=== PATIENT | male | born 1955 | race Caucasian/White ===

== ENCOUNTER → 2017-05-20 | Outpatient (CLI) | payer BC ==
[~2017-05-20] MED LIST: ACC10 PO; ASC400 PO; GABA-113 PO; PRLSR20 PO; TRAM-10 PO
[2017-05-20 12:18] LABS: BASO % 0.3 %; BASO ABS # 0.02 K/uL (0-0.2); COMPLETE YES; EOS % 1.7 %; HEMATOCRIT 44.1 % (42-52); IG% 0.4 %; LYMPH % 23.7 %; LYMPH ABS # 1.78 K/uL (1.2-3.4); MEAN CELL VOLUME 86.1 fL (80-100); MEAN CORPUSCULAR HEMOGLOBIN 29.7 pg (25-34); MEAN CORPUSCULAR HGB CONC 34.5 g/dl (32-36); MEAN PLATELET VOLUME 11.8 fL (7.4-10.4); MONO % 6.8 %; NEUT % 67.1 %; PLATELET COUNT 171 K/uL (130-400); RED BLOOD COUNT 5.12 M/uL (4.7-6.1); WHITE BLOOD COUNT 7.52 K/uL (4.8-10.8)
[2017-05-20 12:29] LABS: ALT/SGPT 31 U/L (12-78); AST/SGOT 21 U/L (15-37); BLOOD UREA NITROGEN 15 mg/dl (7-18); CALCIUM 8.6 mg/dl (8.5-10.1); CARBON DIOXIDE 27 mmol/L (21-32); CHLORIDE 104 mmol/L (98-107); CREATININE 0.93 mg/dl (0.60-1.40); GLUCOSE 93 mg/dl (70-99); SODIUM 137 mmol/L (136-145)
[2017-05-20 12:34] LABS: ALB/GLOB RATIO 0.9 (0.9-2); ALKALINE PHOSPHATASE 83 U/L (45-117); CHOLESTEROL 115 mg/dl (0-200); CHOLESTEROL/HDL RATIO 3.7; HDL CHOLESTEROL 31 mg/dl; LDL CHOLESTEROL CALCULATED 63 mg/dl; PROSTATE SPECIFIC ANTIGEN 0.741 ng/ml (0.000-4.000); TRIGLYCERIDES 106 mg/dl (0-150); VERY LOW DENSITY LIPOPROT CALC 21 mg/dl
== END | disposition home or self-care (01) ==
LOC: C.LABBFT 09:17
PROVIDERS: ATTEND Nurse Practitioner
DX: E78.00 Pure hypercholesterolemia, unspecified (principal); Z12.5 Encounter for screening for malignant neoplasm of prostate; K51.90 Ulcerative colitis, unspecified, without complications

== ENCOUNTER 2024-07-28 10:09 | Inpatient (IN) ==
--- NOTE | 2024-07-28 10:28 | Emergency Department Note ---
Impression & Plan Diverticulitis, Diarrhea, Pneumonia, Acute hypokalemia, Weakness ED Provider Note NAME: SIVAN LOTT Jr AGE: 68 SEX: M : 1955 ARRIVES VIA: Walk-In INFORMANT: Patient ED PROVIDER(S): Benigno Macedo DO CHIEF COMPLAINT: Nausea and diarrhea HPI: Patient is a 68-year-old male with a past medical history of Crohn's for the past 20 years. He notes he has been having bad diarrhea for the past 2 years. It did worsen about a week and a half ago. He denies any headache or change in vision. No chest pain or shortness of breath. No belly pain. He notes he cannot really eat or drink much as when he does he has immediate diarrhea. Denies any dysuria, urgency, or frequency. No other exacerbating or remitting factors. No fevers. ADDITIONAL HISTORY OBTAINED: Significant other at bedside notes that his urine has been very concentrated and they are concerned for dehydration. Chronic Medical/Social Conditions Affecting Care: Per HPI PAST MEDICAL HISTORY:See Below PAST SURGICAL HISTORY:See Below FAMILY HISTORY:See Below SOCIAL HISTORY:See Below HOME MEDICATIONS:See Below ALLERGIES:See Below VITALS:See Below PHYSICAL EXAMINATION: GENERAL: Sitting up in bed, alert, well appearing, well nourished, no distress, non-toxic EYE EXAM: normal conjunctiva. PERRL and EOM's grossly intact. OROPHARYNX: no exudate, no erythema, lips, buccal mucosa, and tongue normal and mucous membranes are moist NECK: supple, no nuchal rigidity, no adenopathy, non-tender LUNGS: Clear to auscultation. Normal chest wall mechanics HEART: no murmurs, S1 normal and S2 normal ABDOMEN: abdomen soft, non-tender, normo-active bowel sounds, no masses, no rebound or guarding. UPPER EXTREMITIES: upper extremities are grossly normal. LOWER EXTREMITIES: No pitting edema. NEURO EXAM: Normal sensorium, cranial nerves II-XII grossly intact, normal speech, no gross weakness of arms, no gross weakness of legs. MEDICAL DECISION MAKING: Patient is a 68-year-old male who presents ER for the below stated complaint. IV was established and blood work was obtained. Labs show leukocytosis of 11.7 thousand. No significant anemia. BMP with mild hypokalemia at 2.7. LFTs and bilirubin were unremarkable. Lipase was normal. UA was clean. CT abdomen pelvis shows diverticulitis and a questionable pneumonia. X-ray shows a right lower lobe infiltrate. CT abdomen pelvis confirms this. Patient was given IV Levaquin and Flagyl as well as IV fluids. He was also given IV potassium. Patient was updated bedside and discussed with the hospitalist for further evaluation management treatment. Consults/Care Managements Discussions: Per MDM Triage Nursing notes reviewed. Limited review of prior medical records performed Vital Signs: reviewed and remarkable for no significant abnormalities Differential diagnosis: Differential diagnoses includes but is not limited to gastritis, peptic ulcer disease, GERD, gallbladder disease, pancreatitis, small bowel obstruction, appendicitis, diverticulitis, hernia, urinary tract infection, torsion, perforation, trauma, infectious. ER treatment provided: See below Diagnostics interpreted by me include EKG and cardiac monitoring as listed below: -Cardiac Monitoring: An order was placed for continuous cardiac monitoring. The monitor shows a rate of 80 with sinus rhythm. -ECG: none -Laboratory studies:Interpreted by me as stated above in MDM and shown below. Imaging studies: Xrays: As interpreted by me: Portable AP upright 1 view of the chest shows right lower lobe infiltrate CTs show: CT abdomen pelvis as described above Procedures:none Critical Care: None Past Med/Surg History Problem List (Updated 07/28/24 @ 16:05 by Benigno Macedo DO) Weakness (Acute) Acute hypokalemia (Acute) Pneumonia (Acute) Diarrhea (Acute) Diverticulitis (Acute) Hypokalemia Pneumonia Acute diverticulitis Nausea and vomiting Diarrhea Screening due Acute diarrhea Crohn disease Vitamin B12 deficiency Chronic diarrhea Fecal incontinence Fatigue Abdominal bloating Hypercholesteremia (Chronic) Hypertension (Chronic) Ulcerative colitis (Chronic) Seasonal allergies (Acute) Peyronie's disease (Acute) Lumbar spinal stenosis (Acute) Gastroesophageal reflux disease (Chronic) Erectile dysfunction (Acute) Smoker Screening for malignant neoplasm of prostate Tobacco dependence (Chronic) Disappearance and of family member (Chronic) Muscle cramps at night Neuropathy Personal history of other malignant neoplasm of skin Medical History (Updated 07/28/24 @ 16:05 by Benigno Macedo DO) Rib pain on left side Skin lesion of right upper extremity Skin lesion of scalp Cervical post-laminectomy syndrome Cervicalgia Vitamin D deficiency Surgical History History of colonoscopy Family History Father Stroke Hx of CABG Mother Stroke Denies family history of Prostate cancer Breast cancer Colorectal cancer Social History Smoking Status: Current every day smoker Tobacco Type: Cigarettes Age Started Using Tobacco: 6; packs per day: 1.5; Cigarettes Per Day: 2; Second Hand Exposure: Yes; Do You Dip or Chew Tobacco: No; Hx Alcohol Use: No Hx Substance Use: No Preferred Language: Japanese Communication Ability: Effective Visual Impairment: No Limitations Hearing Ability: Normal Karate Instructor Required: No Beliefs That Will Affect Care: None marital status: Current Living Situation: Spouse current occupational status: retired Other Information That Helps Us Care for You: No Feels Safe at Home: Yes Safety Concerns: Feels Safe At This Time Childhood Exposure to Second-Hand Smoke: Yes Diet: regular caffeine: Yes Seatbelt Use: always Assistive Devices: Glasses Assistive Devices Comment: glasses are not with pt. Allergies Allergies Allergy/AdvReac Type Severity Reaction Status Date / Time Penicillins Allergy Severe swelling Verified 07/28/24 08:15 in throat codeine Allergy Unknown Verified 07/28/24 08:15 morphine Allergy Unknown Verified 07/28/24 08:15 B 12 pills Allergy Severe Vomiting Uncoded 07/28/24 08:15 Home Meds Home Medications Medication Instructions Recorded Confirmed cholecalciferol (vitamin D3) 25 1,000 units PO UD 01/03/19 07/28/24 mcg (1,000 unit) capsule mesalamine 400 mg capsule (with 400 mg PO QID #360 ea 01/03/19 07/28/24 delayed release tablets inside) omeprazole 20 mg tablet,delayed 20 mg PO UD #90 tabs 01/03/19 07/28/24 release vitamin E 200 unit capsule 200 units PO DAILY 01/05/19 07/28/24 gabapentin 300 mg capsule 300 mg PO UD PRN Other #90 caps 05/29/24 07/28/24 cyanocobalamin (vitamin B-12) 1,000 mcg IM DIRECTED 07/28/24 07/28/24 1,000 mcg/mL injection solution Previous Rx's Medication Instructions Recorded simethicone 125 mg capsule 125 mg PO DAILY PRN abdominal 08/20/23 distention #90 caps olmesartan 20 1 tab PO DAILY #90 tabs 12/15/23 mg-hydrochlorothiazide 12.5 mg tablet simvastatin 40 mg tablet 40 mg PO HS #90 tabs 12/15/23 albuterol sulfate 90 mcg/actuation 2 inh inhalation Q6H PRN shortness 07/11/24 breath activated powder inhaler of breath or wheezing #1 ea (ProAir RespiClick) Results & Data (ED) Vital Signs Vital Signs - 24 hr 07/28/24 10:11 07/28/24 11:52 07/28/24 12:52 Temperature 37.1 C Temperature Source Temporal Artery Scan Pulse Rate 88 Pulse Rate [Finger] 72 74 Respiratory Rate 14 16 16 Respiratory Effort / Characteristics Non-Labored Spontaneous Non-Labored Spontaneous Respiratory Depth Normal Normal Respiratory Pattern Regular Regular Blood Pressure 108/69 Blood Pressure [Right Arm] 106/69 149/75 H Blood Pressure Mean 82 Blood Pressure Mean [Right Arm] 81 99 Blood Pressure Position [Right Arm] Semi-fowlers Pulse Oximetry 94 95 95 Oxygen Delivery Method Room Air Room Air Room Air Sepsis New/Unexplained Change in Mental Status No Sepsis Action Taken by Nursing No Action Required Laboratory Data 07/28/24 10:30 07/28/24 10:30 Lab Results 07/28/24 07/28/24 Range/Units 10:30 11:52 WBC 11.76 H (4.8-10.8) K/ul RBC 4.37 L (4.70-6.10) M/uL Hgb 12.2 L (14.0-18.0) g/dl Hct 36.0 L (42.0-52.0) % MCV 82.4 (80.0-100.0) fL MCH 27.9 (25.0-34.0) pg MCHC 33.9 (32.0-36.0) g/dL RDW Std Deviation 38.9 (36.4-46.3) fL RDW Coeff of Rell 12.9 (11.5-14.5) % Plt Count 424 H (130-400) K/uL MPV 9.6 (9.4-12.4) fL Immature Gran % (Auto) 2.5 % Neut % (Auto) 78.1 % Lymph % (Auto) 12.2 % [place] % (Auto) 5.8 % Eos % (Auto) 0.9 % Baso % (Auto) 0.5 % Neut # (Auto) 9.20 H (1.40-6.50) K/uL Lymph # (Auto) 1.43 (1.20-3.40) K/uL [place] # (Auto) 0.68 H (0.11-0.59) K/uL Eos # (Auto) 0.10 (0.00-0.50) K/uL Baso # (Auto) 0.06 (0.00-0.20) K/uL Immature Gran # (Auto) 0.29 H (0.01-0.20) K/uL Sodium 134 L (136-145) mmol/L Potassium 2.7 L (3.5-5.1) mmol/L Chloride 95 L (98-107) mmol/L Carbon Dioxide 29 (21-32) mmol/L Anion Gap 10 (3-11) BUN 14 (6-23) mg/dl Creatinine 1.01 (0.6-1.4) mg/dl Est Cr Clr Drug Dosing 75.4 ml/min eGFR 81.01 BUN/Creatinine Ratio 13.9 (10-20) Glucose 100 H (70-99(Fasting)) mg/dl Calcium 9.0 (8.6-10.3) mg/dl Magnesium 2.0 (1.7-2.4) mg/dl Iron 29 L (35-175) mcg/dl Ferritin 277.4 (8-388) ng/ml Total Bilirubin 0.6 (0.2-1.0) mg/dl AST 16 (13-39) U/L ALT 18 (7-52) U/L Alkaline Phosphatase 68 (34-104) U/L Total Protein 7.5 (6.0-8.3) gm/dl Albumin 3.3 L (3.4-5.0) gm/dl Globulin 4.2 H (2.5-4.0) gm/dl Albumin/Globulin Ratio 0.8 L (0.9-2) Lipase 11 (11-82) U/L Urine Color Yellow Urine Appearance Clear (Clear) Urine pH 6.0 (4.5-7.5) Ur Specific [place] 1.018 (1.000-1.030) Urine Protein Negative (Negative) Urine Glucose (UA) Negative (Negative) Urine Ketones Negative (Negative) Urine Blood Negative (Negative) Urine Nitrite Negative (Negative) Urine Bilirubin Negative (Negative) Urine Urobilinogen Negative (Negative) Ur Leukocyte Esterase 1+ H (Negative) Urine WBC (Auto) 0-5 (0-5) /hpf Urine RBC (Auto) 0-2 (0-2) /hpf U Hyaline Cast (Auto) 0-2 (0-2) /lpf U Epithel Cells (Auto) 0-2 (0-2) /hpf Urine Bacteria (Auto) None Seen (None Seen) Administered Medications Sodium Chloride (Nss) 1,000 mls @ 125 mls/hr IV .Q8H CAITLYN Stop: 07/29/24 13:29 Last Admin: 07/28/24 13:48 Dose: 125 mls/hr Documented By: CLYDE Potassium Chloride ([place] / Wtr) 10 meq in 100 mls @ 100 mls/hr IV Q1H CAITLYN Stop: 07/28/24 17:29 Last Admin: 07/28/24 15:52 Dose: 100 mls/hr Documented By: CADE Discontinued Medications Sodium Chloride (Nss) 1,000 mls @ 999 mls/hr IV .Q1H1M ONE Stop: 07/28/24 11:24 Last Infusion: 07/28/24 11:52 Dose: Infused Documented By: Admin: 07/28/24 10:35 Dose: 999 mls/hr Documented By: DAVID Metronidazole (Flagyl) 500 mg in 100 mls @ 100 mls/hr IV NOW STA; Protocol Stop: 07/28/24 13:07 Last Infusion: 07/28/24 13:56 Dose: Infused Documented By: Admin: 07/28/24 12:48 Dose: 100 mls/hr Documented By: CLYDE Potassium Chloride ([place] / Wtr) 10 meq in 100 mls @ 100 mls/hr IV Q1H CAITLNY Stop: 07/28/24 14:14 Last Infusion: 07/28/24 15:57 Dose: Infused Documented By: Admin: 07/28/24 13:51 Dose: 100 mls/hr Documented By: Infusion: 07/28/24 13:50 Dose: Infused Documented By: Admin: 07/28/24 12:50 Dose: 100 mls/hr Documented By: CLYDE Ioversol (Optiray 320 100ml) 94 ml IV ONCE ONE Stop: 07/28/24 11:19 Last Admin: 07/28/24 11:18 Dose: 94 ml Documented By: BR Imaging Data Radiologist's Impression: Abdomen/Pelvis CT 07/28/24 10:[address] WITH IV CONTRAST CT DOSE: 1159.5 mGy.cm HISTORY: Acute weakness with diarrhea weak TECHNIQUE: Multiaxial CT images of the abdomen and pelvis were performed following the IV administration of 94 cc of Optiray, A dose lowering technique was utilized adhering to the principles of ALARA. COMPARISON STUDY: None. FINDINGS: Coronary artery calcifications. Pulmonary emphysema with bronchial wall thickening, mucus plugging in left greater than right bibasilar consolidation which is most pronounced in the basal left lower lobe. There are associated tree-in-bud nodules. No pneumatosis or pneumoperitoneum. Unremarkable spleen, pancreas and adrenal glands. Contracted gallbladder. Unremarkable liver with patency of the hepatic and portal veins. Exophytic cyst of the superior pole left kidney. Mild dilation of the superior pole collecting system of the right kidney with mild urothelial thickening. No ureteral calculi. Bladder wall thickening with partial distention. Prostatomegaly. Atherosclerosis of the aorta and branch vessels with high-grade stenosis within the proximal superior mesenteric artery. There is no lymphadenopathy identified. Mildly prominent periesophageal lymph nodes are subcentimeter in size. Colonic diverticulosis. Numerous fluid-filled loops of small bowel are noted without obstruction. Small bowel diverticula are also noted with mild inflammation surrounding the ileal diverticulum of the midline lower abdomen on image 17 series 3. Tiny fat filled periumbilical hernia. No acute fracture. Indeterminate 1.6 cm nodular focus within the right retroperitoneum adjacent to the inferior right hepatic lobe on image 142 series 3. IMPRESSION: 1. Bibasilar pneumonia. 2. Large and small bowel diverticulosis with mild acute diverticulitis involving the ileum. 3. Prostamegaly with evidence of chronic outlet obstruction. 4. Mild pelviectasis of the superior pole right kidney with mild urothelial thickening. Correlate with urinalysis. 5. 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 6. Small bowel air-fluid levels may represent an ileus versus enteritis. No bowel obstruction. 7. Incidental findings as above. ACT 112: Negative or not required by law. The above report was generated using voice recognition software. It may contain grammatical, syntax or spelling errors. Electronically signed by: Eliseo Caceres M.D. 07/28/2024 11:46 AM Chest X-Ray 07/28/24 12:10 XR chest 1V portable CLINICAL HISTORY: pna? COMPARISON STUDY: 09/28/2011 FINDINGS: Heart size and pulmonary vasculature are normal. There is interval reticular and patchy [place]acity in the lung bases. No pleural effusion or pneumothorax. IMPRESSION: Bilateral lung base pneumonia. ACT 112: Negative or not required by law. Electronically signed by: John Peña M.D. 07/28/2024 12:38 PM Discharge Plan Visit Data Chief Complaint: Dehydration Stated Complaint: DEHYDRATION ED Provider: Benigno Macedo Discharge Problem: Diverticulitis, Diarrhea, Pneumonia, Acute hypokalemia, Weakness Patient Disposition: Admitted As Inpatient Discharge Instructions Interventions: ED Discharge Assessment Last Done: 07/28/24 14:30 Discharge Problem: Diarrhea Qualifiers: Diarrhea type: unspecified type Qualified Code(s): R19.7 - Diarrhea, unspecified Pneumonia Qualifiers: Pneumonia type: due to unspecified organism Laterality: unspecified laterality Lung location: unspecified part of lung Qualified Code(s): J18.9 - Pneumonia, unspecified organism
[2024-07-28] MEDS: SODIUM CHLORIDE 0.9% 1,000 ML IV ONE (10:35)
[2024-07-28 10:54] LABS: Basophils # (auto) 0.06 K/uL (0.00-0.20); Basophils % (auto) 0.5 %; Eosinophils % (auto) 0.9 %; Hemoglobin 12.2 g/dl (14.0-18.0); Immature Granulocytes # (auto) 0.29 K/uL (0.01-0.20); Immature Granulocytes % (auto) 2.5 %; Lymphocytes # (auto) 1.43 K/uL (1.20-3.40); Lymphocytes % (auto) 12.2 %; Mean Corpuscular Hemoglobin 27.9 pg (25.0-34.0); Mean Corpuscular Hgb Conc 33.9 g/dL (32.0-36.0); Mean Corpuscular Volume 82.4 fL (80.0-100.0); Mean Platelet Volume 9.6 fL (9.4-12.4); Monocytes # (auto) 0.68 K/uL (0.11-0.59); Monocytes % (auto) 5.8 %; Neutrophils % (auto) 78.1 %; Platelet Count 424 K/uL (130-400); RDW Coefficient of Variation 12.9 % (11.5-14.5); RDW Standard Deviation 38.9 fL (36.4-46.3); Red Blood Count 4.37 M/uL (4.70-6.10); White Blood Count 11.76 K/ul (4.8-10.8)
[2024-07-28 11:09] LABS: Albumin Globulin Ratio 0.8 (0.9-2); Albumin Level 3.3 gm/dl (3.4-5.0); BUN Creatinine Ratio 13.9 (10-20); Bilirubin,Total 0.6 mg/dl (0.2-1.0); Creatinine Clr Calc Pharmacy 75.4 ml/min; Globulin 4.2 gm/dl (2.5-4.0); Potassium 2.7 mmol/L (3.5-5.1); Total Protein 7.5 gm/dl (6.0-8.3)
[2024-07-28] MEDS: OPTIRAY 320 100ml IV ONE (11:18)
--- NOTE | 2024-07-28 11:47 | CT Scan Report ---
ABDOMEN AND PELVIS CT WITH IV CONTRAST CT DOSE: 1159.5 mGy.cm HISTORY: Acute weakness with diarrhea weak TECHNIQUE: Multiaxial CT images of the abdomen and pelvis were performed following the IV administrat ion of 94 cc of Optiray, A dose lowering technique was utilized adhering to the principles of ALARA. COMPARISON STUDY: None. FINDINGS: Coronary artery calcifications. Pulmonary emphysema with bronchial wall thickening, mucus p lugging in left greater than right bibasilar consolidation which is most pronounced in the basal left lower lobe. There are associated tree-in-bud nodules. No pneumatosis or pneumoperitoneum. Unremarkable spleen, pancreas and adrenal glands. Contracted gallbladder. Unremarkable liver with pat ency of the hepatic and portal veins. Exophytic cyst of the superior pole left kidney. Mild dilation of the superior pole collecting system of the right kidney with mild urothelial thickening. No ureter al calculi. Bladder wall thickening with partial distention. Prostatomegaly. Atherosclerosis of the a branden and branch vessels with high-grade stenosis within the proximal superior mesenteric artery. Ther e is no lymphadenopathy identified. Mildly prominent periesophageal lymph nodes are subcentimeter in size. Colonic diverticulosis. [place] us fluid-filled loops of small bowel are noted without obstruction. Small bowel diverticula are also noted with mild inflammation surrounding the ileal diverticulum of the midline lower abdomen on image 17 series 3. Tiny fat filled periumbilical hernia. No acute fracture. Indeterminate 1.6 cm nodular f ocus within the right retroperitoneum adjacent to the inferior right hepatic lobe on image 142 series 3. IMPRESSION: 1. Bibasilar pneumonia. 2. Large and small bowel diverticulosis with mild acute diverticulitis involving the ileum. 3. Prostamegaly with evidence of chronic outlet obstruction. 4. Mild pelviectasis of the superior pole right kidney with mild urothelial thickening. Correlate wit h urinalysis. 5. 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 6. Small bowel air-fluid levels may represent an ileus versus enteritis. No bowel obstruction. 7. Incidental findings as above. ACT 112: Negative or not required by law. The above report was generated using voice recognition software. It may contain grammatical, syntax o r spelling errors. Electronically signed by: Eliseo Caceres M.D. 07/28/2024 11:46 AM
[2024-07-28 12:07] LABS: Appearance Urine Clear (Clear); Bacteria Urine Automated None Seen (None Seen); Bilirubin Urine Negative (Negative); Blood Urine Negative (Negative); Cast Urine Automated 0-2 /lpf (0-2); Color Urine Yellow; Epithelial Cell Urine Auto 0-2 /hpf (0-2); Glucose Urine UA Negative (Negative); Ketones Urine Negative (Negative); Leukocyte Esterase Urine 1+ (Negative); Nitrite Urine Negative (Negative); Protein Urine Negative (Negative); RBC Urine Automated 0-2 /hpf (0-2); Specific Gravity Urine 1.018 (1.000-1.030); Urobilinogen Urine Negative (Negative); WBC Urine Automated 0-5 /hpf (0-5)
--- NOTE | 2024-07-28 12:28 | History & Physical Report ---
Date of Service July 28, 2024 Assessment & Plan (1) Acute diverticulitis: (2) Pneumonia: (3) Hypokalemia: Plan Juan Pablo is a 68-year-old male with PMH of Crohn's disease, ulcerative colitis, GERD, and neuropathy. He presented on 07/28 for diarrhea x 2 weeks. Patient reports that he had the flu 2.5 weeks ago, and shortly after his Crohn's started to flare and act up. He then developed continuous diarrhea. Patient has also had concomitant fevers, chills, and occasional chest palpitations since then. He then began to develop dyspnea on exertion productive cough, with 1 episode of hemoptysis. #Acute diverticulitis A/P CT revealed mild acute diverticulitis involving the ileum; no SBO; no mention of abscess/perforation NSS 1000 mL IV x 1 in the ED Continue fluid resuscitation with NSS at 125 mL/hour x 3 L Hold HCTZ IV pain control as needed IV antiemetics as needed Metronidazole 500 mg IV q8h Will defer ceftriaxone given listed PCN allergy with "swelling in throat" Levofloxacin 750 mg IV q24h N.p.o./bowel rest for now (except p.o. 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 BMP #Anemia Hgb 12.2 on arrival Clinically, patient denies melena, or bright red blood in the urine or stool 1 episode of hemoptysis on the evening of 07/27 Fe panel, ferritin, B12, and folate ordered, pending Trend CBCs #Tobacco use Patient reports that he smokes 2 packs/day Patient declines nicotine patch on admission Continue to encourage cessation Disposition: Admit to PCU telemetry Full code N.p.o./bowel rest for now VTE PPx: SCDs History of Present Illness Chief Complaint: Diarrhea Primary Care Provider: Miles Watson DO Juan Pablo is a 68-year-old male with PMH of Crohn's disease, ulcerative colitis, GERD, and neuropathy. He presented on 07/28 for diarrhea x 2 weeks. Patient reports that he had the flu 2.5 weeks ago, and shortly after his Crohn's started to flare and act up. He then developed continuous diarrhea. Patient has also had concomitant fevers, chills, and occasional chest palpitations since then. He then began to develop dyspnea on exertion productive cough, with 1 episode of hemoptysis. No SOB at rest. No submental oxygen baseline or CPAP at night. He has been taking ibuprofen and Tylenol for his symptoms. He also used Vicks last night. He took his regular morning medicine today; no recent change in medications. Patient denies any pain when eating; no pain radiating over the past month or year. Patient is a current everyday tobacco cigarette smoker; 2 packs/day. He denies any recent alcohol use. PCN allergy of throat swelling. Patient's vitals are stable at time admission. ED course: Levaquin 750 mg IV Metronidazole 500 mg IV K rider 10 mEq IV x 2 NSS 1000 mL IV ROS: Patient endorses fever, chills, night-sweats, chest palpitations (intermittently), productive cough (green), 1 episode of hemoptysis, dysuria, burning with urination, dark urine, and ongoing diarrhea. Patient denies body aches, chest pain, pleuritic CP, SOB at rest, abdominal pain, N/V, blood in urine/stool, or melena. Allergies Allergy/AdvReac Type Severity Reaction Status Date / Time Penicillins Allergy Severe swelling Verified 07/28/24 08:15 in throat codeine Allergy Unknown Verified 07/28/24 08:15 morphine Allergy Unknown Verified 07/28/24 08:15 B 12 pills Allergy Severe Vomiting Uncoded 07/28/24 08:15 Home Medications Medication Instructions Recorded Confirmed Type cholecalciferol (vitamin D3) 25 1,000 units PO UD 01/03/19 07/28/24 History mcg (1,000 unit) capsule mesalamine 400 mg capsule (with 400 mg PO QID #360 ea 01/03/19 07/28/24 History delayed release tablets inside) omeprazole 20 mg tablet,delayed 20 mg PO UD #90 tabs 01/03/19 07/28/24 History release vitamin E 200 unit capsule 200 units PO DAILY 01/05/19 07/28/24 History simethicone 125 mg capsule 125 mg PO DAILY PRN abdominal 08/20/23 07/28/24 Rx distention #90 caps olmesartan 20 1 tab PO DAILY #90 tabs 12/15/23 07/28/24 Rx mg-hydrochlorothiazide 12.5 mg tablet simvastatin 40 mg tablet 40 mg PO HS #90 tabs 12/15/23 07/28/24 Rx gabapentin 300 mg capsule 300 mg PO UD PRN Other #90 caps 05/29/24 07/28/24 History albuterol sulfate 90 mcg/actuation 2 inh inhalation Q6H PRN shortness 07/11/24 07/28/24 Rx breath activated powder inhaler of breath or wheezing #1 ea (ProAir RespiClick) cyanocobalamin (vitamin B-12) 1,000 mcg IM DIRECTED 07/28/24 07/28/24 History 1,000 mcg/mL injection solution Past Med/Surg History Problem List (Updated 07/28/24 @ 16:05 by Benigno Macedo DO) Weakness (Acute) Acute hypokalemia (Acute) Pneumonia (Acute) Diarrhea (Acute) Diverticulitis (Acute) Hypokalemia Pneumonia Acute diverticulitis Nausea and vomiting Diarrhea Screening due Acute diarrhea Crohn disease Vitamin B12 deficiency Chronic diarrhea Fecal incontinence Fatigue Abdominal bloating Hypercholesteremia (Chronic) Hypertension (Chronic) Ulcerative colitis (Chronic) Seasonal allergies (Acute) Peyronie's disease (Acute) Lumbar spinal stenosis (Acute) Gastroesophageal reflux disease (Chronic) Erectile dysfunction (Acute) Smoker Screening for malignant neoplasm of prostate Tobacco dependence (Chronic) Disappearance and of family member (Chronic) Muscle cramps at night Neuropathy Personal history of other malignant neoplasm of skin Medical History (Updated 07/28/24 @ 16:05 by Benigno Macedo DO) Rib pain on left side Skin lesion of right upper extremity Skin lesion of scalp Cervical post-laminectomy syndrome Cervicalgia Vitamin D deficiency Surgical History History of colonoscopy Family History Father Stroke Hx of CABG Mother Stroke Denies family history of Prostate cancer Breast cancer Colorectal cancer Social History Smoking Status: Current every day smoker Tobacco Type: Cigarettes Age Started Using Tobacco: 6; packs per day: 1.5; Cigarettes Per Day: 2; Second Hand Exposure: Yes; Do You Dip or Chew Tobacco: No; Hx Alcohol Use: No Hx Substance Use: No Preferred Language: Bulgarian Communication Ability: Effective Visual Impairment: No Limitations Hearing Ability: Normal Grants Assistant Required: No Beliefs That Will Affect Care: None marital status: Current Living Situation: Spouse current occupational status: retired Other Information That Helps Us Care for You: No Feels Safe at Home: Yes Safety Concerns: Feels Safe At This Time Childhood Exposure to Second-Hand Smoke: Yes Diet: regular caffeine: Yes Seatbelt Use: always Assistive Devices: Glasses Assistive Devices Comment: glasses are not with pt. Review of Systems Review of Systems: See HPI above Physical Exam Physical Exam: General: no acute distress; pleasant affect; at bedside; non-toxic appearing; cooperative; SpO2 95% on RA HEENT: normocephalic, atraumatic; no scleral icterus; PERRLA w/ EOMs intact; vision and hearing grossly intact Neck: supple; no lymphadenopathy; trachea midline Skin: warm, dry without signs of tenting; no cyanosis; no rashes, bruising, lesions, or erythema noted CV: chest wall NTP; RRR; S1/S2 normal; no murmurs/rubs/gallops; pulses intact and symmetric at radial, DP, and PT Lungs: no acute respiratory distress; symmetrical chest wall expansion; clear breath sounds across all lung harmon w/o adventitious sounds; no wheezing ABD: Soft; left lower quadrant is mildly TTP (not painful but "discomfort" when pressing); all 3 other quadrants are NTP; BS present; no rebound/guarding; no distention MSK: no tics or fasciculations; no edema noted in the LEs b/l, nonerythematous Neuro: A&Ox3; normal mood and affect; fluent speech; no focal deficits; sensation intact and symmetric in lower EXTR bilaterally Results & Data Results & Data Vital Signs (Past 12 Hours) Vital Signs Temp Pulse Pulse Resp BP BP Pulse Ox 07/28/24 11:52 72 16 106/69 95 07/28/24 10:11 37.1 C 88 14 108/69 94 O2 Del Method 07/28/24 11:52 Room Air 07/28/24 10:11 Room Air Laboratory Results Abnormal lab results 07/28/24 07/28/24 Range/Units 10:30 11:52 WBC 11.76 H (4.8-10.8) K/ul RBC 4.37 L (4.70-6.10) M/uL Hgb 12.2 L (14.0-18.0) g/dl Hct 36.0 L (42.0-52.0) % Plt Count 424 H (130-400) K/uL Neut # (Auto) 9.20 H (1.40-6.50) K/uL [place] # (Auto) 0.68 H (0.11-0.59) K/uL Immature Gran # (Auto) 0.29 H (0.01-0.20) K/uL Sodium 134 L (136-145) mmol/L Potassium 2.7 L (3.5-5.1) mmol/L Chloride 95 L (98-107) mmol/L Glucose 100 H (70-99(Fasting)) mg/dl Albumin 3.3 L (3.4-5.0) gm/dl Globulin 4.2 H (2.5-4.0) gm/dl Albumin/Globulin Ratio 0.8 L (0.9-2) Ur Leukocyte Esterase 1+ H (Negative) Diagnostic Findings Abdomen/Pelvis CT 07/28/24 10:[address] WITH IV CONTRAST CT DOSE: 1159.5 mGy.cm HISTORY: Acute weakness with diarrhea weak TECHNIQUE: Multiaxial CT images of the abdomen and pelvis were performed following the IV administration of 94 cc of Optiray, A dose lowering technique was utilized adhering to the principles of ALARA. COMPARISON STUDY: None. FINDINGS: Coronary artery calcifications. Pulmonary emphysema with bronchial wall thickening, mucus plugging in left greater than right bibasilar consolidation which is most pronounced in the basal left lower lobe. There are associated tree-in-bud nodules. No pneumatosis or pneumoperitoneum. Unremarkable spleen, pancreas and adrenal glands. Contracted gallbladder. Unremarkable liver with patency of the hepatic and portal veins. Exophytic cyst of the superior pole left kidney. Mild dilation of the superior pole collecting system of the right kidney with mild urothelial thickening. No ureteral calculi. Bladder wall thickening with partial distention. Prostatomegaly. Atherosclerosis of the aorta and branch vessels with high-grade stenosis within the proximal superior mesenteric artery. There is no lymphadenopathy identified. Mildly prominent periesophageal lymph nodes are subcentimeter in size. Colonic diverticulosis. Numerous fluid-filled loops of small bowel are noted without obstruction. Small bowel diverticula are also noted with mild inflammation surrounding the ileal diverticulum of the midline lower abdomen on image 17 series 3. Tiny fat filled periumbilical hernia. No acute fracture. Indeterminate 1.6 cm nodular focus within the right retroperitoneum adjacent to the inferior right hepatic lobe on image 142 series 3. IMPRESSION: 1. Bibasilar pneumonia. 2. Large and small bowel diverticulosis with mild acute diverticulitis involving the ileum. 3. Prostamegaly with evidence of chronic outlet obstruction. 4. Mild pelviectasis of the superior pole right kidney with mild urothelial thickening. Correlate with urinalysis. 5. 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 6. Small bowel air-fluid levels may represent an ileus versus enteritis. No bowel obstruction. 7. Incidental findings as above. ACT 112: Negative or not required by law. The above report was generated using voice recognition software. It may contain grammatical, syntax or spelling errors. Electronically signed by: Eliseo Caceres M.D. 07/28/2024 11:46 AM Chest X-Ray 07/28/24 12:10 XR chest 1V portable CLINICAL HISTORY: pna? COMPARISON STUDY: 09/28/2011 FINDINGS: Heart size and pulmonary vasculature are normal. There is interval reticular and patchy [place]acity in the lung bases. No pleural effusion or pneumothorax. IMPRESSION: Bilateral lung base pneumonia. ACT 112: Negative or not required by law. Electronically signed by: John Peña M.D. 07/28/2024 12:38 PM ECG Additional Comments: ECG revealed Code Status & VTE Plan Code Status Full code Supervising Physician Co-Signing Physician Notes Patient seen and examined, chart reviewed, case discussed with Hang Neal PA-C and I agree with the assessment and plan as above except as otherwise noted Labs and images reviewed 68-year-old male with a past history of Crohn's and recent flu 2 weeks ago who is developed shortness of breath, diarrhea, and has been feeling generally poor. No hematochezia/melena. Has had worsening dyspnea on exertion. With vigorous coughing did cough up a small blood clot last night. Minimal abdominal pain to palpation. Has not had any prior abdominal pain or abdominal pain with meals. Poor p.o. intake and very dehydrated. He has clear respiratory symptoms with secondary pneumonia and evidence of basilar pneumonia on x-ray in addition to some mild diverticulitis on CT with GI symptoms. Recommend coverage for both secondary pneumonia and mild diverticulitis. Reasonable to treat with Levaquin/Flagyl if QT is not prolonged. Will check EKG. No aneurysm noted on CT imaging. MRSA nares pending. If positive add vancomycin. Has hx of anaphylactic PCN allergy Does have evidence of severe SMA stenosis however has been asymptomatic with this. No history of pain with meals, intermittent abdominal pain, melena/hematochezia. Recommend intensification of statin therapy, addition of antiplatelet agent on discharge and outpatient vascular follow-up with return precautions. Agree with above PG Care Time/CCT Total # of Minutes Spent Total Time Spent with Patient: Total time spent is greater than 50% in coordination of care (as documented) at patient's floor/unit and/or counseling patient: Coding [place] [address] INT INP/OBS CARE 3/75MIN Patient Type Established Medical Decision Making High Complexity Diagnoses Acute diverticulitis K57.92 Pneumonia J18.9 Hypokalemia E87.6
--- NOTE | 2024-07-28 12:39 | XRay Report ---
XR chest 1V portable CLINICAL HISTORY: pna? COMPARISON STUDY: 09/28/2011 FINDINGS: Heart size and pulmonary vasculature are normal. There is interval reticular and patchy [place]a city in the lung bases. No pleural effusion or pneumothorax. IMPRESSION: Bilateral lung base pneumonia. ACT 112: Negative or not required by law. Electronically signed by: John Peña M.D. 07/28/2024 12:38 PM
[2024-07-28] MEDS: metroNIDAZOLE 500 MG/100 ML BAG IV STA (12:48)
[2024-07-28] MEDS: POTASSIUM CHLORIDE / WTR 10 MEQ/100 ML PLCT IV SCH ×2 (12:50→15:52)
[2024-07-28] MEDS: SODIUM CHLORIDE 0.9% 1,000 ML IV SCH (13:48)
[2024-07-28 14:48] LABS: Ferritin 277.4 ng/ml (8-388)
[2024-07-28 15:06] LABS: Folate (Folic Acid),Ser orPlas 19.93 ng/ml (>5.38)
[2024-07-28 15:07] LABS: Vitamin B12 > 1500 pg/ml (180-914)
[2024-07-28] MEDS ORDERED: ACETAMINOPHEN 325 MG TAB PO PRN (15:19)
[2024-07-28] MEDS ORDERED: INFLUENZA VACC TS2024-25(65y+)/PF (IIV3) 0.5mL Syr IM ONE (15:46)
[2024-07-28] MEDS: levoFLOXacin/D5W 750 MG/150 ML BAG IV STA (16:50)
[2024-07-28] MEDS: MESALAMINE 400 MG CAPDR PO SCH (16:53)
[2024-07-28] MEDS: metroNIDAZOLE 500 MG/100 ML BAG IV SCH (21:57)
[2024-07-28] MEDS: SIMVASTATIN 40 MG TAB PO SCH (21:57)
--- NOTE | 2024-07-28 22:14 | Electrocardiogram Report ---
Test Reason : Blood Pressure : */* mmHG Vent. Rate : 72 BPM Atrial Rate : 72 BPM P-R Int : 156 ms QRS Dur : 98 ms QT Int : 410 ms P-R-T Axes : 5 -38 21 degrees QTcB Int : 448 ms Sinus rhythm with occasional Premature ventricular complexes Left axis deviation Incomplete right bundle branch block Possible Inferior infarct Abnormal ECG When compared with ECG of 28-Sep-2011 02:33, Premature ventricular complexes are now Present Confirmed by Saul Sebastian ([id number]) on 07/28/2024 10:14:04 PM Referred By: REFERRED SELF Confirmed By: Saul Sebastian
[2024-07-29] MEDS ORDERED: levoFLOXacin/D5W 750 MG/150 ML BAG IV SCH (06:00)
[2024-07-29 07:15] LABS: Basophils # (auto) 0.04 K/uL (0.00-0.20); Basophils % (auto) 0.5 %; Eosinophils # (auto) 0.09 K/uL (0.00-0.50); Eosinophils % (auto) 1.2 %; Hematocrit (blood only) 30.8 % (42.0-52.0); Hemoglobin 10.5 g/dl (14.0-18.0); Immature Granulocytes # (auto) 0.18 K/uL (0.01-0.20); Immature Granulocytes % (auto) 2.4 %; Lymphocytes # (auto) 0.89 K/uL (1.20-3.40); Lymphocytes % (auto) 11.8 %; Mean Corpuscular Hemoglobin 28.4 pg (25.0-34.0); Mean Corpuscular Hgb Conc 34.1 g/dL (32.0-36.0); Mean Corpuscular Volume 83.2 fL (80.0-100.0); Mean Platelet Volume 9.5 fL (9.4-12.4); Monocytes % (auto) 6.6 %; Neutrophils # (auto) 5.86 K/uL (1.40-6.50); Neutrophils % (auto) 77.5 %; Platelet Count 308 K/uL (130-400); RDW Coefficient of Variation 12.7 % (11.5-14.5); RDW Standard Deviation 38.8 fL (36.4-46.3); White Blood Count 7.56 K/ul (4.8-10.8)
[2024-07-29 07:39] LABS: BUN Creatinine Ratio 10.3 (10-20); Calcium 7.9 mg/dl (8.6-10.3); Creatinine Clr Calc Pharmacy 89.3 ml/min; Potassium 3.3 mmol/L (3.5-5.1)
--- NOTE | 2024-07-29 07:52 | Hospitalist Progress Note ---
Date of Service July 29, 2024 Assessment & Plan (1) Acute diverticulitis: (2) Pneumonia: (3) Hypokalemia: Plan Juan Pablo is a 68-year-old male with PMH of Crohn's disease, ulcerative colitis, GERD, and neuropathy. He presented on 07/28 for diarrhea x 2 weeks. Patient reports that he had the flu 2.5 weeks ago, and shortly after his Crohn's started to flare up. He then developed continuous diarrhea. Patient has also had concomitant fevers, chills, and occasional chest palpitations since then. He then began to develop dyspnea on exertion productive cough, with 1 episode of hemoptysis. #Acute diverticulitis A/P CT revealed mild acute diverticulitis involving the ileum; no SBO; no mention of abscess/perforation NSS 1000 mL IV x 1 in the ED Continue fluid resuscitation with NSS at 125 mL/hour x 3 L Hold HCTZ IV pain control as needed IV antiemetics as needed Metronidazole 500 mg IV q8h Will defer ceftriaxone given listed PCN allergy with "swelling in throat" Levofloxacin 750 mg IV q24h N.p.o./bowel rest for now (except p.o. 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 Noted on A/P CT; patient is currently asymptomatic Clinically, he denies abdominal pain on admission Furthermore, patient denies any pain with eating over the past several months Touched base with vascular surgery, will plan for outpatient follow-up Assuming patient's hemoglobin remains stable, would recommend starting antiplatelet therapy either during hospital course or upon discharge #Hypokalemia - replete and monitor - check magnesium #Anemia Hgb 12.2 on arrival Clinically, patient denies melena, or bright red blood in the urine or stool 1 episode of hemoptysis on the evening of 07/27 Fe panel, ferritin, B12, and folate ordered, pending Trend CBCs #Tobacco use Patient reports that he smokes 2 packs/day Patient declines nicotine patch on admission Continue to encourage cessation Disposition: Admit to PCU telemetry Full code N.p.o./bowel rest for now VTE PPx: SCDs Admission and Anticipated Discharge Date Admission Date: July 28, 2024 Results & Data Results & Data Vital Signs (Past 12 Hours) Vital Signs Temp Pulse Pulse Resp BP Pulse Ox O2 Del Method 07/29/24 07:31 73 07/29/24 07:00 36.6 C 65 16 149/88 H 94 Room Air 07/29/24 02:53 36.6 C 66 18 163/75 H 94 Room Air 07/29/24 02:12 63 07/28/24 22:27 36.7 C 62 18 169/68 H 92 Room Air PG Care Time/CCT Total # of Minutes Spent Total Time Spent with Patient: Total time spent is greater than 50% in coordination of care (as documented) at patient's floor/unit and/or counseling patient: Coding Diagnoses Acute diverticulitis K57.92 Pneumonia J18.9 Hypokalemia E87.6
[2024-07-29] MEDS: POTASSIUM CHLORIDE / WTR 10 MEQ/100 ML PLCT IV SCH (08:16)
[2024-07-29 08:19] LABS: Magnesium 1.8 mg/dl (1.7-2.4)
[2024-07-29] MEDS: LOSARTAN POTASSIUM 50 MG TAB PO SCH (08:21)
[2024-07-29] MEDS: PANTOprazole 40 MG/10 ML SYR IV SCH (08:21)
[2024-07-29 12:00] LABS: Adenovirus F 40/41 PCR Not Detected (NotDetected); Astrovirus PCR Not Detected (NotDetected); Campylobacter PCR Not Detected (NotDetected); Cryptosporidium PCR Not Detected (NotDetected); Cyclospora cayetanensis PCR Not Detected (NotDetected); Entamoeba histolytica PCR Not Detected (NotDetected); Enteroaggregative E.coli(EAEC) Not Detected (NotDetected); Enteropathogenic E.coli (EPEC) Not Detected (NotDetected); Enterotoxigenic E.coli (ETEC) Not Detected (NotDetected); Giardia lamblia PCR Not Detected (NotDetected); Norovirus GI/GII PCR Not Detected (NotDetected); Plesiomonas shigelloides PCR Not Detected (NotDetected); Rotavirus A PCR Not Detected (NotDetected); Salmonella PCR Not Detected (NotDetected); Sapovirus PCR Not Detected (NotDetected); Shiga-like Toxin E.coli (STEC) Not Detected (NotDetected); Shigella/Enteroinvasive E.coli Not Detected (NotDetected); Vibrio cholerae PCR Not Detected (NotDetected); Vibrio species PCR Not Detected (NotDetected); Yersinia enterocolitica PCR Not Detected (NotDetected)
[2024-07-29 15:03] VITALS: BP 156/65; PULSE 83; RESP 20; TEMP 98.2; O2SAT 95
[2024-07-29] MEDS: levoFLOXacin/D5W 750 MG/150 ML BAG IV SCH (16:10)
--- NOTE | 2024-07-29 17:36 | Discharge Summary ---
Discharge Summary Date of Service July 29, 2024 Principal Dx & Hospital Course #1 = Principal Diagnosis (1) Acute diverticulitis: (2) Pneumonia: (3) Hypokalemia: Plan Juan Pablo is a 68-year-old male with PMH of Crohn's disease, ulcerative colitis, GERD, and neuropathy. He presented on 07/28 for diarrhea x 2 weeks. Patient reports that he had the flu 2.5 weeks ago, and shortly after his Crohn's started to flare up. He then developed continuous diarrhea. Patient has also had concomitant fevers, chills, and occasional chest palpitations since then. He then began to develop dyspnea on exertion productive cough, with 1 episode of hemoptysis. 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 - Noted on A/P CT; patient is currently asymptomatic - Clinically, he denies abdominal pain on admission - Furthermore, patient denies any pain with eating over the past several months - admission team touched base with vascular surgery, will plan for outpatient follow-up, referral given - hold off on antiplatelet therapy until stability of Hgb is determined as outpatient #Hypokalemia - replete and monitor - magnesium 1.8 #Anemia - Hgb 12.2 on arrival but rpt is 10.5 - no active bleeding - suspect dilutional given pt received IVF - will need repeat Hgb in 1 week as outpatient #Tobacco use Patient reports that he smokes 2 packs/day Patient declines nicotine patch on admission Continue to encourage cessation Admission HPI Per Admitting Provider Juan Pablo is a 68-year-old male with PMH of Crohn's disease, ulcerative colitis, GERD, and neuropathy. He presented on 07/28 for diarrhea x 2 weeks. Patient reports that he had the flu 2.5 weeks ago, and shortly after his Crohn's started to flare and act up. He then developed continuous diarrhea. Patient has also had concomitant fevers, chills, and occasional chest palpitations since then. He then began to develop dyspnea on exertion productive cough, with 1 episode of hemoptysis. No SOB at rest. No submental oxygen baseline or CPAP at night. He has been taking ibuprofen and Tylenol for his symptoms. He also used Vicks last night. He took his regular morning medicine today; no recent change in medications. Patient denies any pain when eating; no pain radiating over the past month or year. Patient is a current everyday tobacco cigarette smoker; 2 packs/day. He denies any recent alcohol use. PCN allergy of throat swelling. Patient's vitals are stable at time admission. ED course: Levaquin 750 mg IV Metronidazole 500 mg IV K rider 10 mEq IV x 2 NSS 1000 mL IV ROS: Patient endorses fever, chills, night-sweats, chest palpitations (intermittently), productive cough (green), 1 episode of hemoptysis, dysuria, burning with urination, dark urine, and ongoing diarrhea. Patient denies body aches, chest pain, pleuritic CP, SOB at rest, abdominal pain, N/V, blood in urine/stool, or melena. Discharge Exam Gen: no acute distress, in bed comfortable HEENT: NC/AT, anicteric, MMM Lungs: CTAB CVS: s1s2nl, RRR Abd: soft, NT, nl bowel sounds Ext: no edema Discharge Plan Discharge Items Patient Disposition: Home - Self-Care Reason For Visit: PNA, DIVERTICULITIS Discharge Diagnosis: Acute diverticulitis Pneumonia Activity: Resume your previous activity Non-emergency contact: Primary Care Provider Call non-emergency contact if: you have any medication questions Follow-up/Referrals: [facility] [place] Gastroenterology [Provider Group] Savage Minor MD [Physician] - Miles Watson, [Primary Care Provider] - Diet: Heart Healthy and Low Fiber Addtl Attending Provider Instructions: You are taking levaquin, please do not lift anything heavy Please follow up with Gastroenterology for diverticulitis Please follow up with vascular surgery for evaluation of high grade stenosis of an artery in your abdomen Please continue with low fiber diet Please repeat your hemoglobin as outpatient Pending Studies at Discharge: No Stand-Alone Forms: My [facility], Smoking Cessation Medications and DC Order Prescriptions: New levofloxacin 750 mg tablet 750 mg PO DAILY 9 Days Qty: 9 0RF metronidazole 500 mg tablet 500 mg PO TID 9 Days Qty: 27 0RF Continued olmesartan-hydrochlorothiazide 20-12.5 mg tablet 1 tab PO DAILY Qty: 90 3RF simvastatin 40 mg tablet 40 mg PO HS Qty: 90 3RF simethicone 125 mg capsule 125 mg PO DAILY PRN (Reason: abdominal distention) Qty: 90 3RF Rx Instructions: otc unable to verify 125 mg 4 times daily as needed after meals and at bedtime vitamin E 200 unit capsule 200 units PO DAILY Rx Instructions: otc unable to verify cholecalciferol (vitamin D3) 1,000 unit capsule 1,000 units PO UD Rx Instructions: 1000u po daily. OTC unable to verify mesalamine 400 mg capsule (with del rel tablets) 400 mg PO QID Qty: 360 omeprazole 20 mg tablet,delayed release (DR/EC) 20 mg PO UD Qty: 90 Rx Instructions: 20 mg po daily. No fill history available/ otc gabapentin 300 mg capsule 300 mg PO UD PRN (Reason: Other) Qty: 90 Rx Instructions: 300 mg po TID prn. No fill history available unable to verify ProAir RespiClick 90 mcg/actuation aerosol powdr breath activated 2 inh inhalation Q6H PRN (Reason: shortness of breath or wheezing) Qty: 1 0RF Rx Instructions: No fill history available cyanocobalamin (vitamin B-12) 1,000 mcg/mL Solution 1,000 mcg IM DIRECTED Rx Instructions: received at pcp visit Discharge Orders: Discharge Order (Routine); Ordered 07/29/24 Ordered By: Mandie Gomes Admission Data Admit Date/Time: 07/28/24 13:02 Attending Provider: Mandie Gomes Admit Provider: Sukhdeep Birch Primary Care Provider: Miles Watson Other Providers: Sukhdeep Birch Hospital Stay Data Consultations 07/28/24 12:17 ED Decision to Admit Stat Diagnostic Imagining Performed 07/28/24 10:24 CT Abd and Pelvis [CT abd pelvis IV con only] Stat Discharge Instructions Given to Patient (Per Discharging Provider) You are taking levaquin, please do not lift anything heavy Please follow up with Gastroenterology for diverticulitis Please follow up with vascular surgery for evaluation of high grade stenosis of an artery in your abdomen Please continue with low fiber diet Please repeat your hemoglobin as outpatient Total Time Total Time Spent Total Time Spent (In Minutes): 35 Coding Level of Care Code 58297 INP/OBS DISCH >30 MIN Diagnoses Acute diverticulitis K57.92 Pneumonia J18.9 Hypokalemia E87.6
== END 2024-07-29 18:16 | disposition home or self-care (01) | DRG 391 ==
LOC: ED 10:09 → SUATTDRO 13:02 → 2E 13:02